=== PATIENT | female | born 1985 | race Caucasian/White ===

== ENCOUNTER 2016-11-03 19:13 | Emergency (ER) | payer OTHER ==
--- NOTE | 2016-11-03 20:21 | RAD ---
EXAM DESCRIPTION: Hand,Left 3 Views CLINICAL HISTORY: 31 years ,Female punched wall COMPARISON: None. TECHNIQUE: LEFT hand, Three view FINDINGS: There is a fracture of the distal aspect of the fifth metacarpal with volar angulation of the fracture site. There is associated soft tissue swelling. IMPRESSION: Volarly angulated fracture of the distal fifth metacarpal with associated soft tissue swelling Electronically signed by: Luisa Seals 11/03/2016 8:20 PM CDT
[2016-11-03] MEDS ORDERED: LIDOCAINE 1% 10 ML VIAL INJ ONE (20:51)
[2016-11-03] MEDS ORDERED: HYDROcodone 7.5MG/APAP 325MG 1 EA TAB ONE (21:16)
[2016-11-03] MEDS: HYDROcodone 7.5MG/APAP 325MG 1 EA TAB PO ONE ×2 (21:17→21:46)
[2016-11-03] MEDS ORDERED: ACETAMINOPHEN W/COD #3 TAB 1 EA TAB PO ONE (21:40)
--- NOTE | 2016-11-03 21:44 | ED.PDOC ---
History of Present Illness - General Chief Complaint: Upper Extremity Injury Stated Complaint: hit wall with rt hand Time Seen by Provider: 11/03/16 19:17 Source: patient Exam Limitations: no limitations - History of Present Illness Initial Comments: the patient is a 31-year-old female presenting to the emergency room due to pain in her right hand after having punched a wall. The circumflex occurred just prior to arrival. She has significant swelling over the knuckles of the fourth and fifth digit of the right hand. She does appear to be neurovascularly intact. There are mild abrasions on the knuckles otherwise. No deep lacerations. No other injuries are obvious. Timing/Duration: momentarily Severity: severe Improving Factors: immobilization Worsening Factors: movement Associated Symptoms: denies symptoms Allergies/Adverse Reactions: Allergies NO KNOWN ALLERGY Allergy (Verified 11/03/16 20:58) Home Medications: Ambulatory Orders Cephalexin [Keflex] 500 mg PO QID #28 cap 02/04/14 Ibuprofen [Motrin Tab] 600 mg PO TID PRN #15 tab 02/04/14 traMADol 37.5MG/APAP 325MG [Ultracet] 1 ea PO Q6H PRN #15 tab 02/04/14 Benzonatate Perles [Tessalon Perles] 400 mg PO BID #10 days 05/14/15 Ciprofloxacin [Cipro] 500 mg PO BID #20 unit 05/14/15 Ipratropium [place] Hfa [Atrovent Hfa] 17 mcg IN Q6HRS #1 aer 05/14/15 Tramadol HCl [Ultram] 100 mg PO Q6HRS #30 tab 05/14/15 Acetamin W/Cod #3 Tab [Tylenol w/CODEINE #3] 1 ea PO Q6HRS PRN #30 tab 11/03/16 Review of Systems - Review of Systems Constitutional: States: no symptoms reported EENTM: States: no symptoms reported Respiratory: States: no symptoms reported Cardiology: States: no symptoms reported Gastrointestinal/Abdominal: States: no symptoms reported Genitourinary: States: no symptoms reported Musculoskeletal: States: see HPI Skin: States: see HPI Neurological: States: no symptoms reported Endocrine: States: no symptoms reported Past Medical History (General) - Patient Medical History Hx Congestive Heart Failure: No Hx Diabetes: No - Vaccination History Hx Tetanus, Diphtheria Vaccination: No Hx Influenza Vaccination: No Hx Pneumococcal Vaccination: No - Social History Hx Tobacco Use: Yes Hx Alcohol Use: Yes Hx Substance Use: No Hx Substance Use Treatment: No Hx Depression: No - Female History Patient : No Family Medical History - Family History Mother Family History: Unknown Living Status: Still Living Physical Exam - Physical Exam General Appearance: Alert, Comfortable, No apparent distress Eye Exam: bilateral normal Ears, Nose, Throat: hearing grossly normal Neck: full range of motion, normal inspection Respiratory: no respiratory distress, no accessory muscle use Cardiovascular/Chest: normal peripheral pulses, no edema Peripheral Pulses: radial,right: 2+, radial,left: 2+ Extremity: no pedal edema, normal capillary refill, other - bruising and swelling over the fourth and fifth knuckles of the right hand. 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 Comments: Vital Signs - 24 hr 11/03/16 19:55 Temperature 96.9 F L Pulse Rate [ 104 H left] Respiratory 18 Rate Blood Pressure 142/88 [left] O2 Sat by Pulse 99 Oximetry Progress - Progress Progress: 11/03/16 21:43 the patient is a 31-year-old female presenting with a boxer's fracture of the right hand. Risk and benefits were explained and the patient agreed to reduction. 8 cc 1% lidocaine without epinephrine was used for a hematoma block. Reduction was obtained while placing the splint. Patient tolerated splint placement well. Abrasions were cleaned with alcohol. Tylenol 3 is written for pain and patient can additionally use 2 Aleve twice daily with food. She should set up an appointment with her hand specialist in [place] for reevaluation next week to make sure the fracture site has not moved. ER warnings were given. Departure - Departure Clinical Impression: Closed boxer's fracture Qualifiers: Encounter type: initial encounter Qualified Code(s): S62.339A - Displaced fracture of neck of unspecified metacarpal bone, initial encounter for closed fracture Disposition: Discharge to Home or Self Care Condition: Fair Departure Forms: ED Discharge - Pt. Copy, Patient Portal Self Enrollment Instructions: DI for Boxer's Fracture Diet: regular diet Activity: no pushing/pulling with affected limb Prescriptions: Acetamin W/Cod #3 Tab [Tylenol w/CODEINE #3] 1 ea PO Q6HRS PRN #30 tab PRN Reason: Moderate Pain Home Medications: Ambulatory Orders Cephalexin [Keflex] 500 mg PO QID #28 cap 02/04/14 Ibuprofen [Motrin Tab] 600 mg PO TID PRN #15 tab 02/04/14 traMADol 37.5MG/APAP 325MG [Ultracet] 1 ea PO Q6H PRN #15 tab 02/04/14 Benzonatate [place] [Tessalon Perles] 400 mg PO BID #10 days 05/14/15 Ciprofloxacin [Cipro] 500 mg PO BID #20 unit 05/14/15 Ipratropium [place] Hfa [Atrovent Hfa] 17 mcg IN Q6HRS #1 aer 05/14/15 Tramadol HCl [Ultram] 100 mg PO Q6HRS #30 tab 05/14/15 Acetamin W/Cod #3 Tab [Tylenol w/CODEINE #3] 1 ea PO Q6HRS PRN #30 tab 11/03/16 Additional Instructions: the patient is a 31-year-old female presenting with a boxer's fracture of the right hand. Risk and benefits were explained and the patient agreed to reduction. 8 cc 1% lidocaine without epinephrine was used for a hematoma block. Reduction was obtained while placing the splint. Patient tolerated splint placement well. Abrasions were cleaned with alcohol. Tylenol 3 is written for pain and patient can additionally use 2 Aleve twice daily with food. She should set up an appointment with her hand specialist in [place] for reevaluation next week to make sure the fracture site has not moved. ER warnings were given.
[2016-11-03 21:55] VITALS: BP 124/75; TEMP 98.2; O2SAT 97
--- NOTE | 2016-11-03 22:46 | RAD ---
EXAM DESCRIPTION: Hand,Right 2 Views CLINICAL HISTORY: 31 years Female ,fu splint boxers COMPARISON: 11/03/2016. TECHNIQUE: Three views of the right hand. FINDINGS: There are fractures involving the distal shaft of the fifth metacarpal bone. There is mild palmar angulation which is improved compared to the previous study. IMPRESSION: Fractures of the distal shaft of the right fifth metacarpal bone with improved angulation compared to the previous study. Electronically signed by: Domenico Seals MD 11/03/2016 10:44 PM CDT
== END 2016-11-03 21:55 | disposition home or self-care (01) ==
LOC: ER 19:13
DX: S62.326A Displaced fracture of shaft of fifth metacarpal bone, right hand, initial encounter for closed fracture (principal); Z87.891 Personal history of nicotine dependence; W22.01XA Walked into wall, initial encounter; Y92.9 Unspecified place or not applicable